=== PATIENT | male | born 1980 | race Caucasian/White ===

== ENCOUNTER 2017-01-08 06:35 | Emergency (ER) | payer MEDICAID, OTHER ==
[~2017-01-08] VITALS: Ht 177.8 cm; Wt 97.0 kg
[2017-01-08 06:38] VITALS: BP 127/86
[2017-01-08] MEDS ORDERED: ONDANSETRON ODT 4 MG ONE (07:18)
[2017-01-08] MEDS ORDERED: HYDROmorphone 1 MG/ML, 1ML ONE (07:19)
[2017-01-08] MEDS ORDERED: HYDROmorphone 1 MG/ML, 1ML IM ONE (07:30)
[2017-01-08] MEDS ORDERED: ONDANSETRON ODT 4 MG PO ONE (07:30)
== END 2017-01-08 08:22 | disposition home or self-care (01) ==
LOC: ED 08:17
DX: G89.29 Other chronic pain (principal); M79.661 Pain in right lower leg
CPT/HCPCS: 96372; 99283; J1170; Q0162

== ENCOUNTER 2017-01-24 18:48 | Emergency (ER) | payer MEDICAID ==
[~2017-01-24] VITALS: Ht 177.8 cm; Wt 96.0 kg
[2017-01-24 18:55] VITALS: BP 133/91
== END 2017-01-24 19:39 | disposition home or self-care (01) ==
LOC: ED 19:20
DX: Z76.0 Encounter for issue of repeat prescription (principal); G89.29 Other chronic pain; M25.569 Pain in unspecified knee
CPT/HCPCS: 99283

== ENCOUNTER 2017-01-29 22:21 | Emergency (ER) | payer MEDICAID ==
[~2017-01-29] VITALS: Ht 180.3 cm; Wt 94.5 kg
[2017-01-29 22:24] VITALS: BP 159/94
[2017-01-29] MEDS ORDERED: OXYcodone/APAP 10/325MG TABLET ONE (23:52)
[2017-01-29] MEDS ORDERED: IBUPROFEN 200 MG TABLET ONE (23:52)
[2017-01-30] MEDS ORDERED: LORazepam 1MG TABLET PO ONE
[2017-01-30] MEDS ORDERED: IBUPROFEN 800 MG TABLET PO ONE
[2017-01-30] MEDS ORDERED: OXYcodone/APAP 10/325MG TABLET PO ONE
[2017-01-30] MEDS ORDERED: LORazepam 1MG TABLET ONE ×2 (00:01)
== END 2017-01-30 00:28 | disposition home or self-care (01) ==
LOC: ED 23:02
DX: G90.50 Complex regional pain syndrome I, unspecified (principal); M54.9 Dorsalgia, unspecified; Z76.0 Encounter for issue of repeat prescription
CPT/HCPCS: 99283